=== PATIENT | male | born 1980 | race Two or more races ===

== ENCOUNTER → 2022-05-29 | Emergency (ER) | payer SELFPAY ==
[~2022-05-29] VITALS: Ht 167.6 cm; Wt 82.1 kg
[~2022-05-29] MED LIST: CEFAZOLIN 1 GM in IV D5W 50 ML IV ONE; IV NS 0.9% 1,000 ML BAG IV ONE; MORPHINE SULFATE INJ 2 MG/ML DISP.SYRIN IV ONE; MORPHINE SULFATE INJ 4 MG/ML DISP.SYRIN ONE
--- NOTE | 2022-05-29 14:10 | NUR ---
15 MIN AGO RECEIVED PT 41 YRS MALE WALKING IN C/O POINT RT FINGER CUT AND LOSS WITH BLEEDING
--- NOTE | 2022-05-29 14:12 | NUR ---
FAXED [facility] CRITICAL TRAUMA TRANSFER REQUEST [phone]
--- NOTE | 2022-05-29 14:15 | NUR ---
Note maci in EDM - 05/29/22 at 1523 by PHGETTAS IV removed. Catheter intact and site benign. Pressure and 4x4 applied to site. No bleeding noted.
--- NOTE | 2022-05-29 14:20 | NUR ---
E RAY ON RT FINGER AND HAND DONE
--- NOTE | 2022-05-29 14:20 | NUR ---
CALLED DR. GUDINO
--- NOTE | 2022-05-29 14:28 | NUR ---
CALLED [facility] SPEAKING WITH DR. JONES.
--- NOTE | 2022-05-29 14:31 | NUR ---
CALLED [facility] FOR HIGHER LEVEL OF CARE, [facility] WILL FAX CLINICALS
[2022-05-29 14:45] LABS: HEMATOCRIT 43 % (39-51); HEMOGLOBIN 14.2 g/dL (13.5-17.5); LYMPHOCYTES # (AUTO) 5.6 K/uL (0.8-4.8); LYMPHOCYTES % (AUTO) 60.4 % (20.0-44.0); MEAN CORPUSCULAR HGB CONC 33 g/dl (31.0-36.0); MEAN CORPUSCULAR VOLUME 86 fL (80-96); MONOCYTES # (AUTO) 2.3 K/uL (0.1-1.30); MONOCYTES % (AUTO) 24.5 % (2.0-12.0); NEUTROPHILS # (AUTO) 1.4 K/uL (1.8-8.9); NEUTROPHILS % (AUTO) 15.1 % (43.0-81.0); PLATELET COUNT (AUTO) 264 K/uL (150-450); RED BLOOD CELL COUNT(AUTO) 4.97 MIL/uL (4.5-6.0); WHITE BLOOD COUNT (AUTO) 9.3 K/uL (4.3-11.0)
--- NOTE | 2022-05-29 14:46 | NUR ---
[facility] CALLED THEY ARE AT CRITICAL CAPACITY AND WILL DECLINE THE PATIENT PER GEMAK.
--- NOTE | 2022-05-29 15:10 | NUR ---
IV removed. Catheter intact and site benign. Pressure and 4x4 applied to site. No bleeding noted.
--- NOTE | 2022-05-29 15:15 | NUR ---
Patient does not wish to proceed with medical care recommended by ( KAREN) . Patient given information related to possible complications, up to and including , which could occur as a result of leaving the hospital at this time. Patient verbalizes understanding of risks involved due to leaving against medical advice. Patient has signed AMA form.
[2022-05-29 15:27] VITALS: BP 127/72
[2022-05-29 15:37] LABS: CALCIUM, SERUM 8.4 mg/dL (8.5-10.1); CREATININE 1.4 mg/dL (0.6-1.3); POTASSIUM 3.6 mmol/L (3.5-5.1)
[2022-05-30 03:50] LABS: LYMPHOCYTES % (MANUAL) 21 % (16-48); MONOCYTES % (MANUAL) 11 % (0-11.0); NEUTROPHILS % (MANUAL) 68 (42-76)
== END | disposition left against medical advice (07) ==
LOC: ER 14:05
DX: S68.620A Partial traumatic transphalangeal amputation of right index finger, initial encounter (principal); W27.0XXA Contact with workbench tool, initial encounter; Y93.89 Activity, other specified; Y92.89 Other specified places as the place of occurrence of the external cause; Y99.8 Other external cause status
CPT/HCPCS: 99284; 96365; 96375; 73140; 85025; 80048; 36415; 85730; 85007; J0690; J2270; J7060; J7030; A6403